=== PATIENT | female | born 1955 | race Caucasian/White ===

== ENCOUNTER 2017-07-03 16:25 | Emergency (ER) | payer MEDICAID ==
--- NOTE | 2017-07-03 18:09 | UC ---
Respiratory Complaint HPI - HPI Summary HPI Summary: 1-2 WEEKS OF PERSISTENT COUGH, CONGESTION. CAN NOT SLEEP DUE TO COUGH. INTERMITTENT FEVER TMAX 101. SAW PCP 1 WEEK AGO AND DX WITH VIRAL URI. SX ARE PERSISTENT AND NOT IMPROVING SO CAME FOR RE-EVALUATION. ALSO IS C/O RIGHT SHOULDER PAIN FOR 2.5 YEARS. INJURED AT WORK INITIALLY. PAIN IS BECOMING INTOLERABLE. 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 Onset/Duration: Gradual Onset, Lasting Weeks, Still Present Timing: Constant Severity Initially: Moderate Severity Currently: Moderate Pain Intensity: 10 - RIGHT SHOULDER PAIN Pain Scale Used: 0-10 Numeric Character: Cough: Productive Aggravating Factors: Nothing Alleviating Factors: Nothing Associated Signs And Symptoms: Positive: Fever, Wheezing, URI - Allergies/Home Medications Allergies/Adverse Reactions: Allergies Allergy/AdvReac Type Severity Reaction Status Date / Time Bee Venom Allergy Anaphylatic Verified 07/03/17 17:06 Shock Ketorolac Tromethamine Allergy See Comment Verified 07/03/17 17:06 [From Toradol] Morphine AdvReac Severe See Comment Verified 07/03/17 17:07 Home Medications: Home Medications Ibuprofen TAB* [Advil TAB*] 800 mg PO PRN 07/03/17 [History] PMH/Surg Hx/FS Hx/Imm Hx Neurological History: Migraine - Surgical History Surgical History: Yes Surgery Procedure, Year, and Place: HYSTERECTOMY, X3, LAPAROSCOPY, COLONOSCOPY - Family History Known Family History: Positive: Cardiac Disease, Hypertension, Diabetes, Renal Disease - Social History Alcohol Use: None Substance Use Type: None Smoking Status (MU): Current Every Day Smoker Type: Cigarettes Amount Used/How Often: <1 PPD Review of Systems Constitutional: Fever ENT: Nasal Discharge Respiratory: Shortness Of Breath, Cough Cardiovascular: Negative Gastrointestinal: Negative Musculoskeletal: Arthralgia, Decreased ROM All Other Systems Reviewed And Are Negative: Yes Physical Exam Triage Information Reviewed: Yes Appearance: No Pain Distress, Well-Nourished, Ill-Appearing - MOD Vital Signs: Initial Vital Signs Temp 100.2 F 07/03/17 17:01 Pulse 82 07/03/17 17:01 Resp 16 07/03/17 17:01 BP 146/81 07/03/17 17:01 Pulse Ox 94 07/03/17 17:01 Eyes: Positive: Conjunctiva Clear ENT: Positive: Hearing grossly normal, Pharynx normal, TMs normal Neck: Positive: Supple, Nontender, No Lymphadenopathy Respiratory: Positive: No respiratory distress, No accessory muscle use, Decreased breath sounds, Wheezing - LEFT BASE - MILD INTERMITTENT, Other: - COUGHING CONTINUOUSLY DURING ENCOUNTER Cardiovascular Exam: Normal Abdomen Description: Positive: Soft Musculoskeletal: Positive: No Edema Neurological: Positive: Alert Psychological: Positive: Age Appropriate Behavior Skin: Negative: rashes UC Diagnostic Evaluation - Laboratory O2 Sat by Pulse Oximetry: 94 Diagnostic Studies Comment: CXR SHOWS MILD COPD BUT NOTHING ACUTE. RIGHT SHOULDER XRAY SHOWS MILD OSTEOARTHRITIS. Respiratory Course/Dx - Course Course Of Treatment: DISCUSSED ANTIBIOTIC OPTIONS. PT WOULD LIKE LEVAQUIN. HAS HAD IT IN THE PAST WITH GOOD EFFECT. DISCUSSED BLACK BOX WARNING - TENDONITIS/ TENDON RUPTURE. PT UNDERSTANDS AND IS WILLING TO ASSUME THAT RISK. DAUGHTER PRESENT DURING THIS CONVERSATION. - Differential Dx/Diagnosis Provider Diagnoses: 1. ACUTE BRONCHITIS. 2. RIGHT SHOULDER PAIN Discharge - Discharge Plan Condition: Stable Disposition: HOME Prescriptions: Albuterol HFA INHALER* [Ventolin HFA Inhaler*] 2 puff INH Q4H PRN #1 mdi PRN Reason: Shortness Of Breath Levofloxacin [Levaquin] 500 mg PO DAILY #10 tab guaiFENesin/CODIEN 100MG-10MG* [Robitussin AC 100Mg-10Mg*] 5 - 10 ml PO Q6H PRN #150 ml MDD 40ml PRN Reason: Cough Patient Education Materials: Acute Bronchitis (ED), Shoulder Pain (ED) Referrals: Moises Okeefe MD [Medical Doctor] - 1 Week Paula Aguilar MD [Primary Care Provider] - If Needed Additional Instructions: CALL THE NUMBER BELOW FOR ASSISTANCE IN ESTABLISHING WITH A PCP An additional resource available to assist in finding the appropriate physician for your health care needs is the [facility] ([facility]). You may contact them by calling [phone]. GO TO THE ER WITHOUT FAIL IF YOUR RESPIRATORY SYMPTOMS WORSEN. CALL [facility]TH[facility] FOR AN APPOINTMENT TO DISCUSS YOUR LONGSTANDING SHOULDER PAIN.
--- NOTE | 2017-07-03 18:48 | RAD ---
INDICATION: Cough and fever. COMPARISON: Comparison is made with a prior study from February 20, 2015. TECHNIQUE: Dual-energy PA and lateral views of the chest were obtained. FINDINGS: The heart is within normal limits in size. Mediastinal and hilar contours appear within normal limits. The lungs are hyperinflated and clear. No pleural effusion is seen. IMPRESSION: FINDINGS SUGGESTIVE OF COPD, NO EVIDENCE FOR ACUTE FINDING.
--- NOTE | 2017-07-03 18:52 | RAD ---
INDICATION: Right shoulder injury. TECHNIQUE: 4 views of the right shoulder were obtained. FINDINGS: The bones are in normal alignment. No fracture is seen. There is mild osteoarthritic change in the acromioclavicular joint. IMPRESSION: MILD OSTEOARTHRITIC CHANGE.
[2017-07-03 19:27] VITALS: BP 148/87
== END 2017-07-03 19:39 | disposition home or self-care (01) ==
LOC: UCEAST 16:25
DX: J20.9 Acute bronchitis, unspecified (principal); J44.9 Chronic obstructive pulmonary disease, unspecified; M19.011 Primary osteoarthritis, right shoulder
CPT/HCPCS: 71020; 99212; G0463

== ENCOUNTER 2017-10-21 10:56 | Inpatient (IN) | payer OTHER ==
[2017-10-21 11:47] LABS: ABS Basophils 0 10^3/ul (0-0.2); ABS Eosinophils 0 10^3/ul (0-0.6); ABS Lymphocytes 1.4 10^3/ul (1.0-4.8); ABS Neutrophils 3.4 10^3/ul (1.5-7.7); ABS Nucleated RBC 0 10^3/ul; Eosinophil % 0.2 % (0-6); Hematocrit 43 % (35-47); Hemoglobin 14.8 g/dl (12.0-16.0); Lymphocyte % 24.5 % (25-47); Mean Corpuscular HGB Conc 34 g/dl (31-36); Mean Corpuscular Hemoglobin 31 pg (27-31); Mean Corpuscular Volume 90 fL (80-97); Mean Platelet Volume 8 um3 (7.4-10.4); Nucleated Red Blood Cells % 0; Platelet Count 215 10^3/ul (150-450); Red Blood Count 4.81 10^6/ul (4.0-5.4); Red Cell Distribution Width 14 % (10.5-15); White Blood Count 5.9 10^3/ul (3.5-10.8)
[2017-10-21 11:52] LABS: INR 1.01 (0.77-1.02)
[2017-10-21] MEDS ORDERED: methylPREDNISolone 125 MG* 2 ML VIAL IV ONE (11:54)
[2017-10-21] MEDS ORDERED: NS 0.9% 1000 ML* 1,000 ML IV ONE ×2 (11:54→14:49)
[2017-10-21] MEDS ORDERED: Albuterol/Ipratropium NEB.SOL* Albuterol 2.5 MG/Ipratropium 0.5 MG 3 ML INH ONE (11:54)
[2017-10-21 12:01] LABS: EGFR Non-African American 61.5 (>60)
[2017-10-21] MEDS ORDERED: HYDROmorphone INJ* 1 MG/ML CARPUJECT SYRINGE IV ONE (13:44)
[2017-10-21] MEDS ORDERED: Oseltamivir CAP* 75 MG CAP PO ONE (13:52)
--- NOTE | 2017-10-21 14:13 | RAD ---
Indication: Shortness of breath. Single frontal view of the chest performed at 1215 hours was reviewed. Comparison is made with previous exam dated July 03, 2017. No mediastinal shift is noted. Heart is of normal size and configuration. Lung nolan appear clear. IMPRESSION: NO ACTIVE CARDIOPULMONARY DISEASE IS NOTED.
[2017-10-21] MEDS ORDERED: Albuterol/Ipratropium NEB.SOL* Albuterol 2.5 MG/Ipratropium 0.5 MG 3 ML INH PRN (14:49)
[2017-10-21] MEDS ORDERED: Acetaminophen TAB* 325 MG PO PRN (14:49)
[2017-10-21] MEDS ORDERED: Ibuprofen TAB* 800 MG PO PRN (14:50)
[2017-10-21] MEDS ORDERED: Albuterol HFA INHALER* 8 gm MDI INH PRN (14:50)
[2017-10-21] MEDS ORDERED: HYDROmorphone INJ* 2 MG/ML CARPUJECT SYRINGE IV SLOW PU PRN (14:51)
[2017-10-21] MEDS ORDERED: methylPREDNISolone 125 MG* 2 ML VIAL ONE (16:11)
[2017-10-21] MEDS: Azithromycin IV(*) 500 MG in NS 0.9% 250 ML* 250 ML IVPB SCH (16:14)
[2017-10-21] MEDS: HYDROmorphone INJ* 2 MG/ML CARPUJECT SYRINGE IV SLOW PU PRN (16:14)
[2017-10-21] MEDS: Enoxaparin(*) 40 MG/0.4 ML SYR SUBCUT SCH (16:15)
--- NOTE | 2017-10-21 18:04 | ED ---
Moon Aguilar Abhishek, scribed for Amanuel Asencio MD on 10/21/17 at 1357 . Shortness of Breath - HPI Summary HPI Summary: This patient is a 62 year old F presenting to [facility] with a chief complaint of SOB since 3 ago. The patient rates the pain 10/10 in severity. Symptoms alleviated by nothing. Patient reports coughing, right side flank abd pain ( since 4 days ago), diffuse chest pain (since yesterday) aggravated by coughing, and warm urine. Pt states the abd pain is aggravated by urination. Medications reviewed and pt states she takes Ativan (anxiety), and pain medications. Pt took ibuprofen and her prescribed medications. Coughing is nonproductive. - History of Current Complaint Chief Complaint: EDShortnessOfBreath Time Seen by Provider: 10/21/17 11:04 Hx Obtained From: Patient Onset/Duration: Gradual Onset, Lasting Days - since 3 days ago; 10/18/17, Still Present Timing: Constant Current Severity: Severe Associated Signs & Symptoms: Cough (Nonproductive), Chest Pain w/Cough - Allergy/Home Medications Allergies/Adverse Reactions: Allergies Allergy/AdvReac Type Severity Reaction Status Date / Time Bee Venom Allergy Anaphylatic Verified 10/21/17 10:58 Shock Ketorolac Tromethamine Allergy See Comment Verified 10/21/17 10:58 [From Toradol] Morphine AdvReac Severe See Comment Verified 10/21/17 10:58 Home Medications: Home Medications LORazepam TAB(*) [Ativan 0.5 MG TAB (*)] 0.5 mg PO Q8HR 10/21/17 [History Confirmed 10/21/17] PMH/Surg Hx/FS Hx/Imm Hx Endocrine/Hematology History: Denies: Hx Diabetes Cardiovascular History: Denies: Hx Congestive Heart Failure Respiratory History: Reports: Hx Chronic Obstructive Pulmonary Disease (COPD) Neurological History: Reports: Hx Migraine, Other Neuro Impairments/Disorders - vertigo - Surgical History Surgery Procedure, Year, and Place: HYSTERECTOMY, X3, LAPAROSCOPY, COLONOSCOPY Infectious Disease History: No Infectious Disease History: Denies: Traveled Outside the [place] in Last 30 Days - Family History Known Family History: Positive: Cardiac Disease, Hypertension, Diabetes, Renal Disease - Social History Alcohol Use: None Substance Use Type: Reports: None Hx Tobacco Use: Yes Smoking Status (MU): Heavy Every Day Tobacco Smoker Type: Cigarettes Amount Used/How Often: <1 PPD Review of Systems Constitutional: Negative Eyes: Negative ENT: Negative Positive: Chest Pain - diffuse and aggravated by a cough Positive: Shortness Of Breath - nonproductive, Cough Positive: Abdominal Pain - right sided flank pain Genitourinary: Other - "warm urine" Musculoskeletal: Negative Skin: Negative Neurological: Negative Psychological: Normal All Other Systems Reviewed And Are Negative: Yes Physical Exam - Summary Physical Exam Summary: Appearance: The patient is well-nourished in no acute distress and in no acute pain. Skin: The skin is warm and dry and skin color reflects adequate perfusion. HEENT: ~The head is normocephalic and atraumatic. The pupils are equal and reactive. The conjunctivae are clear and without drainage. ~Nares are patent and without drainage. ~Mouth reveals moist mucous membranes and the throat is without erythema and exudate. ~The external ears are intact. The ear canals are patent and without drainage. The tympanic membranes are intact. Neck: the neck is supple with full range of motion and non-tender. There are no carotid bruits. ~There is no neck vein distension. Respiratory: Chest is non-tender. Tight width decreased breath sounds Cardiovascular: tachycardia. ~There is no murmur or rub auscultated. ~~There is no peripheral edema and pulses are symmetrical and equal. Abdomen: The abdomen is soft and non-tender. ~There are normal bowel sounds heard in all four quadrants and there is no organomegaly palpated. Musculoskeletal: There is no back tenderness noted. ~Extremities are non-tender with full range of motion. ~There is good capillary refill. ~There is no peripheral edema or calf tenderness elicited. Neurological: Patient is alert and oriented to person, place and time. ~The patient has symmetrical motor strength in all four extremities. ~Cranial nerves are grossly intact. Deep tendon reflexes are symmetrical and equal in all four extremities. Psychiatric: The patient has an appropriate affect and does not exhibit any anxiety or depression. Triage Information Reviewed: Yes Vital Signs On Initial Exam: Initial Vitals Temp Pulse Resp BP Pulse Ox 98.6 F 108 28 126/73 93 10/21/17 10:58 10/21/17 10:58 10/21/17 10:58 10/21/17 10:58 10/21/17 10:58 Vital Signs Reviewed: Yes - [place] Coma Scale Coma Scale Total: 15 Diagnostics - Vital Signs Vital Signs Temp Pulse Resp BP Pulse Ox 10/21/17 13:50 22 10/21/17 13:39 87 129/75 94 10/21/17 13:00 85 121/62 94 10/21/17 12:30 81 32 114/55 94 10/21/17 12:21 91 14 98 10/21/17 12:00 66 24 108/59 93 10/21/17 11:33 94 10/21/17 11:30 104 17 112/67 95 10/21/17 11:15 22 10/21/17 11:13 99 24 93 10/21/17 11:10 142/77 10/21/17 10:58 98.6 F 108 28 126/73 93 - Laboratory Lab Results: Lab Results 10/21/17 10/21/17 10/21/17 Range/Units 11:40 11:40 11:40 WBC 5.9 (3.5-10.8) 10^3/ul RBC 4.81 (4.0-5.4) 10^6/ul Hgb 14.8 (12.0-16.0) g/dl Hct 43 (35-47) % MCV 90 (80-97) fL MCH 31 (27-31) pg MCHC 34 (31-36) g/dl RDW 14 (10.5-15) % Plt Count 215 (150-450) 10^3/ul MPV 8 (7.4-10.4) um3 Neut % (Auto) 58.3 (38-83) % Lymph % (Auto) 24.5 L (25-47) % [place] % (Auto) 16.3 H (1-9) % Eos % (Auto) 0.2 (0-6) % Baso % (Auto) 0.7 (0-2) % Absolute Neuts (auto) 3.4 (1.5-7.7) 10^3/ul Absolute Lymphs (auto) 1.4 (1.0-4.8) 10^3/ul Absolute Monos (auto) 1.0 H (0-0.8) 10^3/ul Absolute Eos (auto) 0 (0-0.6) 10^3/ul Absolute Basos (auto) 0 (0-0.2) 10^3/ul Absolute Nucleated RBC 0 10^3/ul Nucleated RBC % 0 INR (Anticoag Therapy) (0.77-1.02) Sodium 132 L (133-145) mmol/L Potassium 4.5 (3.5-5.0) mmol/L Chloride 97 L (101-111) mmol/L Carbon Dioxide 26 (22-32) mmol/L Anion Gap 9 (2-11) mmol/L BUN 16 (6-24) mg/dL Creatinine 0.92 (0.51-0.95) mg/dL Est GFR ( Amer) 79.0 (>60) Est GFR (Non-Af Amer) 61.5 (>60) BUN/Creatinine Ratio 17.4 (8-20) Glucose 89 (70-100) mg/dL Lactic Acid (0.5-2.0) mmol/L Calcium 9.8 (8.6-10.3) mg/dL Total Bilirubin 0.50 (0.2-1.0) mg/dL AST 19 (13-39) U/L ALT 13 (7-52) U/L Alkaline Phosphatase 48 (34-104) U/L Troponin I 0.00 (<0.04) ng/mL C-Reactive Protein 18.37 H (< 5.00) mg/L B-Natriuretic Peptide 25 ( - 100) pg/mL Total Protein 7.0 (6.4-8.9) g/dL Albumin 4.3 (3.2-5.2) g/dL Globulin 2.7 (2-4) g/dL Albumin/Globulin Ratio 1.6 (1-3) Influenza A (Rapid) (Negative) Influenza B (Rapid) (Negative) 10/21/17 10/21/17 10/21/17 Range/Units 11:40 11:40 11:40 WBC (3.5-10.8) 10^3/ul RBC (4.0-5.4) 10^6/ul Hgb (12.0-16.0) g/dl Hct (35-47) % MCV (80-97) fL MCH (27-31) pg MCHC (31-36) g/dl RDW (10.5-15) % Plt Count (150-450) 10^3/ul MPV (7.4-10.4) um3 Neut % (Auto) (38-83) % Lymph % (Auto) (25-47) % [place] % (Auto) (1-9) % Eos % (Auto) (0-6) % Baso % (Auto) (0-2) % Absolute Neuts (auto) (1.5-7.7) 10^3/ul Absolute Lymphs (auto) (1.0-4.8) 10^3/ul Absolute Monos (auto) (0-0.8) 10^3/ul Absolute Eos (auto) (0-0.6) 10^3/ul Absolute Basos (auto) (0-0.2) 10^3/ul Absolute Nucleated RBC 10^3/ul Nucleated RBC % INR (Anticoag Therapy) 1.01 (0.77-1.02) Sodium (133-145) mmol/L Potassium (3.5-5.0) mmol/L Chloride (101-111) mmol/L Carbon Dioxide (22-32) mmol/L Anion Gap (2-11) mmol/L BUN (6-24) mg/dL Creatinine (0.51-0.95) mg/dL Est GFR ( Amer) (>60) Est GFR (Non-Af Amer) (>60) BUN/Creatinine Ratio (8-20) Glucose (70-100) mg/dL Lactic Acid 1.1 (0.5-2.0) mmol/L Calcium (8.6-10.3) mg/dL Total Bilirubin (0.2-1.0) mg/dL AST (13-39) U/L ALT (7-52) U/L Alkaline Phosphatase (34-104) U/L Troponin I (<0.04) ng/mL C-Reactive Protein (< 5.00) mg/L B-Natriuretic Peptide ( - 100) pg/mL Total Protein (6.4-8.9) g/dL Albumin (3.2-5.2) g/dL Globulin (2-4) g/dL Albumin/Globulin Ratio (1-3) Influenza A (Rapid) Positive H (Negative) Influenza B (Rapid) Negative (Negative) Result Diagrams: 10/21/17 11:40 10/21/17 11:40 Lab Statement: Any lab studies that have been ordered have been reviewed, and results considered in the medical decision making process. - Radiology Chest X-ray Radiology Interpretation Completed By: Radiologist - CXR reveals, per radiologist, NO ACTIVE CARDIOPULMONARY DISEASE IS NOTED. ED physician has reviewed this radiology report and agrees. - EKG 1 Cardiac Rate: Tachycardia EKG Rhythm: Sinus Tachycardia EKG Interpretation: left axis deviation at 100 bpm Course/Dx - Course Course Of Treatment: Ms. Solares presented with a couple days of cough and congestion. She is a smoker and unaware of any respiratory problems. She was quite tight and wheezy with a positive influenza. I think she needs to be hospitalized because of her breathing. She has also had some right flank pain for several days. - Diagnoses Provider Diagnoses: Influenza A, Bronchospasm - Physician Notifications Discussed Care of Patient With: Dr. Jimenez - Critical Care Time Critical Care Time: 30-74 min Discharge - Discharge Plan Condition: Stable Disposition: ADMITTED TO [facility] The documentation as recorded by the Moon kurtz Abhishek accurately reflects the service I personally performed and the decisions made by me, Amanuel Asencio MD.
[2017-10-21] MEDS: cefTRIAXone(*) 1 GM in NS 0.9% 50 ML* 50 ML IVPB SCH (18:48)
[2017-10-21] MEDS ORDERED: oxyCODONE/Acetamin 5/325 MG* TAB PO PRN (19:58)
[2017-10-21] MEDS: methylPREDNISolone 125 MG* 2 ML VIAL IV SCH (20:33)
[2017-10-21] MEDS: Oseltamivir CAP* 75 MG CAP PO SCH (20:33)
[2017-10-21] MEDS: oxyCODONE/Acetamin 5/325 MG* TAB PO PRN (20:33)
[2017-10-21] MEDS: LORazepam TAB(*) 0.5 MG PO SCH (20:33)
--- NOTE | 2017-10-21 21:23 | HP ---
CC: Dr. Aguilar * HISTORY AND PHYSICAL: DATE OF ADMISSION: 10/21/17 TIME OF EVALUATION: 1:00 p.m. PRIMARY CARE PROVIDER: Paula Aguilar MD. CHIEF COMPLAINT: Shortness of breath/body aches/fever. HISTORY OF PRESENT ILLNESS: Ms. Solares is a pleasant 62-year-old woman who complains of shortness of breath for the past 3-4 days. The patient states that she has a burning in her chest that is worse with breathing. She states this is 10/10 in severity. The patient is coughing. She has right flank pain and diffuse chest pain and described this as a burning and she states she has some pain with urination (warm urine). The patient has got abdominal pain. The patient takes only few medications including Ativan for anxiety. She has been taking ibuprofen. Her cough is nonproductive. 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 She thinks she might have the flu. The patient had a chest x-ray in the emergency room and this showed no active cardiopulmonary disease. At the same time, the patient has a normal white blood cell count. However, the patient's labs were positive for influenza A. The patient's chest pain and overall difficulty breathing has the patient concerned and the emergency room has treated the patient as a COPD exacerbation given her smoking history and physical exam, which will be described below. She has received IV steroids. She has received IV antibiotics to account for a bacterial component potentially. The patient states she has not been taking adequate food or liquid. The patient feels dehydrated and she has got a low sodium value. Her CRP is elevated consistent with an acute infection. Again, she is referred for admission/observation by the hospitalist service. PAST MEDICAL HISTORY: 1. Anxiety. 2. Reactive airway disease/asthma-uses Ventolin inhaler. 3. Ongoing tobacco abuse. OUTPATIENT MEDICATIONS: 1. Ativan 0.5 mg by mouth every 8 hours, standing. 2. Advil 800 mg twice daily p.r.n. pain/fever. 3. Ventolin inhaler 2 puffs inhaled every four hours as needed for shortness of breath. ALLERGIES: BEES, KETOROLAC, MORPHINE. FAMILY HISTORY: Reviewed but noncontributory based on this current presentation. 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 The patient is an ongoing smoker. She denies alcohol use. Her surrogate decision maker is her daughter, Mily Bailey, who could be reached at [phone]. The patient wishes to be a full code. REVIEW OF SYSTEMS: A review of 14 systems was accomplished at bedside and is largely negative expect for the pertinent positives I mentioned already in the HPI and past medical history. PHYSICAL EXAMINATION GENERAL APPEARANCE: Acutely ill woman, holding her chest while breathing. Appears stated age. She is sitting up in the emergency room. VITAL SIGNS: On admission temperature 98.6 degrees Fahrenheit though the patient reported an elevated temperature at home, pulse rate initially 99 to 103 down to mid 80s, back to 103 with heart rate varying based on pain primarily. Respirations are as high as 22, oxygen saturation 93% on 2 L. Blood pressure 114/100 up to systolic 130 with diastolic decreased to 60s. HEENT: Oropharynx is clear with mucous membranes moist. No oral exudate noticed. No posterior pharyngeal erythema noted. NECK: No anterior cervical lymphadenopathy appreciated. No carotid bruits. LUNGS: Breath sounds are diminished bilaterally. No focal rales, rhonchi or wheezing. She is diffusely tender along her shoulders and clavicles and her posterior back consistent with influenza and general inflammation. Her anterior chest wall is similarly tender. ABDOMEN: Her abdomen is soft and nontender. Bowel sounds are present. EXTREMITIES: She has got 2+ pulses in the tibialis anterior and dorsalis pedis locations as well as her brachial artery and radial arteries. She moves all her extremities equally. MUSCULOSKELETAL: Her musculoskeletal exam is unremarkable. There is trace to no swelling bilaterally that I can appreciate. NEUROLOGIC: Entirely nonfocal with no sensory, motor, reflex, or proprioception component deficiencies. PSYCH: Normal affect. No acute anxiety or depression. Her mental status is intact. SKIN: Her skin is dry and well perfused throughout. ADMISSION DATA: Her white blood cell count is normal at 5.6 with a monocytosis at 16, 3%. Her other differential is unremarkable. Hemoglobin 14.8 , platelets 215, INR normal at 1.01. Blood chemistry is significant for marginally low sodium at 132 and a low chloride at 97 but otherwise unremarkable with a preserved BUN to creatinine ratio. Her CRP is not surprisingly elevated at 18.37. BNP 25, protein level is preserved and her serology is significant for positive influenza A rapid test from the emergency room. Her chest x-ray done at 1128 hours on 10/21/17 showed no pulmonary parenchymal disease (though this does not rule out bronchial inflammation and infection) EKG is normal sinus rhythm, no evidence of active ischemia. IMPRESSION: Ms. Solares is a 62-year-old woman, active smoker, certainly with a likely undiagnosed chronic obstructive pulmonary disease component with a chronic obstructive pulmonary disease flare and poor air movement and shortness of breath with cough secondary to influenza positivity with significant systemic symptoms and pain that is requiring opiates for full control. PLAN BY MEDICAL PROBLEM: 1. Influenza with COPD exacerbation as a result. - We will continue steroids that were started in the emergency room for poor air movement with 60 mg IV Solu-Medrol q. 8 hours, this should be titrated down by subsequent providers. - We will initiate azithromycin, but also add ceftriaxone for possible bacterial component of presentation in addition to Tamiflu for influenza treatment. - IV fluids with an addition of 1 L of normal saline in addition to what was given by the emergency room to fully rehydrate. - Of note, the patient has substantial pain and is reticent to taking morphine because of prior adverse reactions, so she she will have Dilaudid 0.5 or 1 mg q. 4 hours p.r.n. pain in addition to Motrin 800 mg by mouth every 8 hours in addition to oral Tylenol. - I will continue dual nebulizer therapy as was started by the emergency room. 2. We will continue Ativan for anxiety. 3. We will provide a regular diet. No indication for inability to tolerate oral food and liquids. 4. Reassess tomorrow for possible improvement. My inclination is that the patient will not be ready for discharge tomorrow given the severity of her symptoms at the point of admission. Recheck CBC and comprehensive metabolic panel on the morning of October 22 5. Full code. 6. Surrogate decision maker is as stated in the social history. TIME SPENT: Total time taken to admit Ms. Solares was 75 minutes, greater than half the time was spent going over the admission history and physical at the bedside with the patient. [id number]/[facility] #: [id number] MTDD
[2017-10-21] MEDS ORDERED: LORazepam TAB(*) 0.5 MG PO ONE (22:12)
[2017-10-21] MEDS ORDERED: Mouth Piece, Nicotine* 1 EACH CARTRIDGE INH ONE (23:00)
[2017-10-21] MEDS ORDERED: Nicotine Inhaler* 10 MG AMP Q2H PRN CRAVING INH (23:00)
[2017-10-22] MEDS: oxyCODONE/Acetamin 5/325 MG* TAB PO PRN ×4 (01:16→21:42)
[2017-10-22] MEDS: methylPREDNISolone 125 MG* 2 ML VIAL IV SCH ×3 (04:28→21:41)
[2017-10-22] MEDS: LORazepam TAB(*) 0.5 MG PO SCH ×3 (04:29→21:42)
[2017-10-22] MEDS ORDERED: Saline NASAL SPRAY 0.65%* BTL BOTH NARES PRN (04:57)
[2017-10-22 06:52] LABS: ABS Basophils 0 10^3/ul (0-0.2); ABS Eosinophils 0 10^3/ul (0-0.6); ABS Lymphocytes 0.8 10^3/ul (1.0-4.8); ABS Monocytes 0.2 10^3/ul (0-0.8); ABS Neutrophils 2.1 10^3/ul (1.5-7.7); ABS Nucleated RBC 0 10^3/ul; Eosinophil % 0.1 % (0-6); Hematocrit 38 % (35-47); Hemoglobin 12.9 g/dl (12.0-16.0); Mean Corpuscular HGB Conc 34 g/dl (31-36); Mean Corpuscular Hemoglobin 31 pg (27-31); Mean Corpuscular Volume 91 fL (80-97); Mean Platelet Volume 8 um3 (7.4-10.4); Nucleated Red Blood Cells % 0.2; Platelet Count 186 10^3/ul (150-450); Red Blood Count 4.19 10^6/ul (4.0-5.4); Red Cell Distribution Width 14 % (10.5-15); White Blood Count 3.1 10^3/ul (3.5-10.8)
[2017-10-22 07:04] LABS: EGFR Non-African American 93.4 (>60)
[2017-10-22] MEDS ORDERED: Influenza VAC *QUAD* 2017-18* 0.5 ML SYRINGE IM ONE (09:00)
[2017-10-22] MEDS: Oseltamivir CAP* 75 MG CAP PO SCH ×2 (09:17→21:41)
[2017-10-22] MEDS: Ondansetron INJ* 2 MG/ML VIAL IV PRN ×2 (13:18→21:47)
[2017-10-22] MEDS: Azithromycin IV(*) 500 MG in NS 0.9% 250 ML* 250 ML IVPB SCH (15:34)
[2017-10-22] MEDS: Enoxaparin(*) 40 MG/0.4 ML SYR SUBCUT SCH (15:34)
[2017-10-22] MEDS: cefTRIAXone(*) 1 GM in NS 0.9% 50 ML* 50 ML IVPB SCH (16:43)
--- NOTE | 2017-10-22 18:04 | PN ---
Subjective Date of Service: 10/22/17 Interval History: C/o RLQ abd pain, and Right CVAT, warmness with urination for 3 days. Denies N/ V/D. Denies shortness of breath or chest pain. states that her breathing is better. Family History: Unchanged from Admission Social History: Unchanged from Admission Past Medical History: Unchanged from Admission Objective Active Medications: Acetaminophen (Tylenol Tab*) 650 mg PO Q4H PRN PRN Reason: FEVER/PAIN Albuterol (Ventolin Hfa Inhaler*) 2 puff INH Q4H PRN PRN Reason: SHORTNESS OF BREATH Albuterol/Ipratropium (Duoneb (Albuterol 2.5 Mg/Ipratropium 0.5 Mg)) 1 neb INH [id number] AWAKE PRN PRN Reason: sob/wheexing Enoxaparin Sodium (Lovenox(*)) 40 mg SUBCUT Q24H [facility] Last Admin: 10/22/17 15:34 Dose: 40 mg Hydromorphone HCl (Dilaudid Inj*) 0.5 mg IV SLOW PU Q4H PRN PRN Reason: moderate pain Hydromorphone HCl (Dilaudid Inj*) 1 mg IV SLOW PU Q4H PRN PRN Reason: severe pain Last Admin: 10/21/17 16:14 Dose: 1 mg Ceftriaxone Sodium 1 gm/ (Sodium Chloride) 50 mls @ 200 mls/hr IVPB Q24H [facility] Last Admin: 10/22/17 16:43 Dose: 200 mls/hr Azithromycin 500 mg/ Sodium (Chloride) 250 mls @ 250 mls/hr IVPB Q24H [facility] Last Admin: 10/22/17 15:34 Dose: 250 mls/hr Ibuprofen (Motrin Tab*) 800 mg PO BID PRN PRN Reason: PAIN Last Admin: 10/22/17 13:18 Dose: 800 mg Lorazepam (Ativan Tab(*)) 0.5 mg PO Q8HR [facility] Last Admin: 10/22/17 13:13 Dose: 0.5 mg Methylprednisolone Sodium Succinate (Solu-Medrol 125mg *) 60 mg IV Q8H [facility] Last Admin: 10/22/17 12:04 Dose: 60 mg Nicotine (Nicotine Inhaler*) 10 mg INH Q2H PRN PRN Reason: CRAVING Last Admin: 10/22/17 13:12 Dose: 10 mg Ondansetron HCl (Zofran Inj*) 4 mg IV Q4H PRN PRN Reason: NAUSEA/VOMITING Last Admin: 10/22/17 13:18 Dose: 4 mg Oseltamivir Phosphate (Tamiflu Cap*) 75 mg PO BID GASPER Stop: 10/26/17 09:01 Last Admin: 10/22/17 09:17 Dose: 75 mg Oxycodone/Acetaminophen (Percocet 5/325 Tab*) 1 tab PO Q4H PRN PRN Reason: PAIN - MILD TO MODERATE Oxycodone/Acetaminophen (Percocet 5/325 Tab*) 2 tab PO Q4H PRN PRN Reason: PAIN - MODERATE TO SEVERE Last Admin: 10/22/17 13:59 Dose: 2 tab Sodium Chloride (Sodium Chloride 0.65% Nasal Orange*) 2 spray BOTH NARES Q2H PRN PRN Reason: DRYNESS Last Admin: 10/22/17 09:17 Dose: 2 spray Vital Signs - 8 hr 10/22/17 10/22/17 10/22/17 13:05 13:10 13:13 Temperature 97.7 F Pulse Rate 85 Respiratory 16 18 Rate Blood Pressure 118/63 (mmHg) O2 Sat by Pulse 88 94 Oximetry 10/22/17 10/22/17 10/22/17 13:59 15:53 16:49 Temperature 97.6 F Pulse Rate 90 Respiratory 16 18 18 Rate Blood Pressure 119/61 (mmHg) O2 Sat by Pulse 91 Oximetry Oxygen Devices in Use Now: None Appearance: appears comfortable sittingin the bed. no respiratory distress Eyes: No Scleral Icterus Ears/Nose/Mouth/Throat: Clear Oropharnyx, Mucous Membranes Moist Neck: NL Appearance and Movements; NL JVP, Trachea Midline Respiratory: Symmetrical Chest Expansion and Respiratory Effort, Clear to Auscultation Cardiovascular: NL Sounds; No Murmurs; No JVD, RRR, No Edema Abdominal: NL Sounds; No Tenderness; No Distention Extremities: No Edema, No Clubbing, Cyanosis Skin: No Rash or Ulcers Neurological: Alert and Oriented x 3, NL Gait, NL Muscle Strength and Tone Nutrition: Taking PO's Result Diagrams: 10/22/17 06:36 10/22/17 06:36 Additional Lab and Data: Lab Results 01/10/21/17 10/21/17 Range/Units 11:40 11:40 11:40 WBC 5.9 (3.5-10.8) 10^3/ul RBC 4.81 (4.0-5.4) 10^6/ul Hgb 14.8 (12.0-16.0) g/dl Hct 43 (35-47) % MCV 90 (80-97) fL MCH 31 (27-31) pg MCHC 34 (31-36) g/dl RDW 14 (10.5-15) % Plt Count 215 (150-450) 10^3/ul MPV 8 (7.4-10.4) um3 Neut % (Auto) 58.3 (38-83) % Lymph % (Auto) 24.5 L (25-47) % [place] % (Auto) 16.3 H (1-9) % Eos % (Auto) 0.2 (0-6) % Baso % (Auto) 0.7 (0-2) % Absolute Neuts (auto) 3.4 (1.5-7.7) 10^3/ul Absolute Lymphs (auto) 1.4 (1.0-4.8) 10^3/ul Absolute Monos (auto) 1.0 H (0-0.8) 10^3/ul Absolute Eos (auto) 0 (0-0.6) 10^3/ul Absolute Basos (auto) 0 (0-0.2) 10^3/ul Absolute Nucleated RBC 0 10^3/ul Nucleated RBC % 0 INR (Anticoag Therapy) (0.77-1.02) Sodium 132 L (133-145) mmol/L Potassium 4.5 (3.5-5.0) mmol/L Chloride 97 L (101-111) mmol/L Carbon Dioxide 26 (22-32) mmol/L Anion Gap 9 (2-11) mmol/L BUN 16 (6-24) mg/dL Creatinine 0.92 (0.51-0.95) mg/dL Est GFR ( Amer) 79.0 (>60) Est GFR (Non-Af Amer) 61.5 (>60) BUN/Creatinine Ratio 17.4 (8-20) Glucose 89 (70-100) mg/dL Lactic Acid (0.5-2.0) mmol/L Calcium 9.8 (8.6-10.3) mg/dL Total Bilirubin 0.50 (0.2-1.0) mg/dL AST 19 (13-39) U/L ALT 13 (7-52) U/L Alkaline Phosphatase 48 (34-104) U/L Troponin I 0.00 (<0.04) ng/mL C-Reactive Protein 18.37 H (< 5.00) mg/L B-Natriuretic Peptide 25 ( - 100) pg/mL Total Protein 7.0 (6.4-8.9) g/dL Albumin 4.3 (3.2-5.2) g/dL Globulin 2.7 (2-4) g/dL Albumin/Globulin Ratio 1.6 (1-3) Influenza A (Rapid) (Negative) Influenza B (Rapid) (Negative) 10/21/17 10/21/17 10/21/17 Range/Units 11:40 11:40 11:40 WBC (3.5-10.8) 10^3/ul RBC (4.0-5.4) 10^6/ul Hgb (12.0-16.0) g/dl Hct (35-47) % MCV (80-97) fL MCH (27-31) pg MCHC (31-36) g/dl RDW (10.5-15) % Plt Count (150-450) 10^3/ul MPV (7.4-10.4) um3 Neut % (Auto) (38-83) % Lymph % (Auto) (25-47) % [place] % (Auto) (1-9) % Eos % (Auto) (0-6) % Baso % (Auto) (0-2) % Absolute Neuts (auto) (1.5-7.7) 10^3/ul Absolute Lymphs (auto) (1.0-4.8) 10^3/ul Absolute Monos (auto) (0-0.8) 10^3/ul Absolute Eos (auto) (0-0.6) 10^3/ul Absolute Basos (auto) (0-0.2) 10^3/ul Absolute Nucleated RBC 10^3/ul Nucleated RBC % INR (Anticoag Therapy) 1.01 (0.77-1.02) Sodium (133-145) mmol/L Potassium (3.5-5.0) mmol/L Chloride (101-111) mmol/L Carbon Dioxide (22-32) mmol/L Anion Gap (2-11) mmol/L BUN (6-24) mg/dL Creatinine (0.51-0.95) mg/dL Est GFR ( Amer) (>60) Est GFR (Non-Af Amer) (>60) BUN/Creatinine Ratio (8-20) Glucose (70-100) mg/dL Lactic Acid 1.1 (0.5-2.0) mmol/L Calcium (8.6-10.3) mg/dL Total Bilirubin (0.2-1.0) mg/dL AST (13-39) U/L ALT (7-52) U/L Alkaline Phosphatase (34-104) U/L Troponin I (<0.04) ng/mL C-Reactive Protein (< 5.00) mg/L B-Natriuretic Peptide ( - 100) pg/mL Total Protein (6.4-8.9) g/dL Albumin (3.2-5.2) g/dL Globulin (2-4) g/dL Albumin/Globulin Ratio (1-3) Influenza A (Rapid) Positive H (Negative) Influenza B (Rapid) Negative (Negative) Assess/Plan/Problems-Billing Assessment: - Patient Problems (1) Influenza A Current Visit: Yes Status: Acute Code(s): J10.1 - FLU DUE TO OTH IDENT INFLUENZA VIRUS W OTH RESP MANIFEST SNOMED Code(s): 899777837 Comment: Continue Tamiflu Supportive care (2) COPD (chronic obstructive pulmonary disease) Current Visit: Yes Status: Acute Code(s): J44.9 - CHRONIC OBSTRUCTIVE PULMONARY DISEASE, UNSPECIFIED SNOMED Code(s): 48233895 Comment: Suspect this is a flare d/t influenza Will continue ceftriaxone and azithromycin continue albuterol nebs as needed for shortness of breath continue solumedrol 60 mg Q8 hours will reevaluate in the AM Status and Disposition: inpatient will reevaluate in the AM for possible discharge
[2017-10-22] MEDS: HYDROmorphone INJ* 2 MG/ML CARPUJECT SYRINGE IV SLOW PU PRN (21:42)
[2017-10-23] MEDS: LORazepam TAB(*) 0.5 MG PO SCH (05:25)
[2017-10-23] MEDS: methylPREDNISolone 125 MG* 2 ML VIAL IV SCH ×2 (05:25→12:21)
[2017-10-23] MEDS: Ondansetron INJ* 2 MG/ML VIAL IV PRN ×2 (05:27→10:58)
[2017-10-23] MEDS: oxyCODONE/Acetamin 5/325 MG* TAB PO PRN ×2 (05:28→10:59)
[2017-10-23 09:27] LABS: Urine Appearance Clear; Urine Color Yellow
[2017-10-23 09:28] LABS: Urine Ketones Negative (Negative); Urine Specific Gravity 1.005 (1.010-1.030); Urine Urobilinogen Negative (Negative)
[2017-10-23 09:29] LABS: Urine Blood Negative (Negative); Urine Protein Negative (Negative)
[2017-10-23] MEDS: Oseltamivir CAP* 75 MG CAP PO SCH (10:22)
--- NOTE | 2017-10-23 11:22 | PN ---
Subjective Date of Service: 10/23/17 Interval History: patient states that she feels better, denies shortness of breath. c/o mild chest pain with coughing. Denies V/D. states that she has nausea after eating breakfast. Family History: Unchanged from Admission Social History: Unchanged from Admission Past Medical History: Unchanged from Admission Objective Active Medications: Acetaminophen (Tylenol Tab*) 650 mg PO Q4H PRN PRN Reason: FEVER/PAIN Albuterol (Ventolin Hfa Inhaler*) 2 puff INH Q4H PRN PRN Reason: SHORTNESS OF BREATH Albuterol/Ipratropium (Duoneb (Albuterol 2.5 Mg/Ipratropium 0.5 Mg)) 1 neb INH [id number] AWAKE PRN PRN Reason: sob/wheexing Enoxaparin Sodium (Lovenox(*)) 40 mg SUBCUT Q24H [facility] Last Admin: 10/22/17 15:34 Dose: 40 mg Hydromorphone HCl (Dilaudid Inj*) 0.5 mg IV SLOW PU Q4H PRN PRN Reason: moderate pain Hydromorphone HCl (Dilaudid Inj*) 1 mg IV SLOW PU Q4H PRN PRN Reason: severe pain Last Admin: 10/22/17 21:42 Dose: 1 mg Ceftriaxone Sodium 1 gm/ (Sodium Chloride) 50 mls @ 200 mls/hr IVPB Q24H [facility] Last Admin: 10/22/17 16:43 Dose: 200 mls/hr Azithromycin 500 mg/ Sodium (Chloride) 250 mls @ 250 mls/hr IVPB Q24H [facility] Last Admin: 10/22/17 15:34 Dose: 250 mls/hr Ibuprofen (Motrin Tab*) 800 mg PO BID PRN PRN Reason: PAIN Last Admin: 10/22/17 13:18 Dose: 800 mg Lorazepam (Ativan Tab(*)) 0.5 mg PO Q8HR [facility] Last Admin: 10/23/17 05:25 Dose: 0.5 mg Methylprednisolone Sodium Succinate (Solu-Medrol 125mg *) 60 mg IV Q8H [facility] Last Admin: 10/23/17 05:25 Dose: 60 mg Nicotine (Nicotine Inhaler*) 10 mg INH Q2H PRN PRN Reason: CRAVING Last Admin: 10/22/17 13:12 Dose: 10 mg Ondansetron HCl (Zofran Inj*) 4 mg IV Q4H PRN PRN Reason: NAUSEA/VOMITING Last Admin: 10/23/17 10:58 Dose: 4 mg Oseltamivir Phosphate (Tamiflu Cap*) 75 mg PO BID GASPER Stop: 10/26/17 09:01 Last Admin: 10/23/17 10:22 Dose: 75 mg Oxycodone/Acetaminophen (Percocet 5/325 Tab*) 1 tab PO Q4H PRN PRN Reason: PAIN - MILD TO MODERATE Oxycodone/Acetaminophen (Percocet 5/325 Tab*) 2 tab PO Q4H PRN PRN Reason: PAIN - MODERATE TO SEVERE Last Admin: 10/23/17 10:59 Dose: 2 tab Sodium Chloride (Sodium Chloride 0.65% Nasal [place]*) 2 spray BOTH NARES Q2H PRN PRN Reason: DRYNESS Last Admin: 10/22/17 09:17 Dose: 2 spray Vital Signs - 8 hr 10/23/17 10/23/17 10/23/17 03:56 05:25 05:28 Temperature 97.9 F Pulse Rate 89 Respiratory 20 18 16 Rate Blood Pressure 135/73 (mmHg) O2 Sat by Pulse 89 Oximetry 10/23/17 10/23/17 07:25 10:59 Temperature Pulse Rate Respiratory 18 18 Rate Blood Pressure (mmHg) O2 Sat by Pulse Oximetry Oxygen Devices in Use Now: None Result Diagrams: 10/22/17 06:36 10/22/17 06:36 Additional Lab and Data: Lab Results 10/21/17 10/21/17 10/21/17 Range/Units 11:40 11:40 11:40 WBC 5.9 (3.5-10.8) 10^3/ul RBC 4.81 (4.0-5.4) 10^6/ul Hgb 14.8 (12.0-16.0) g/dl Hct 43 (35-47) % MCV 90 (80-97) fL MCH 31 (27-31) pg MCHC 34 (31-36) g/dl RDW 14 (10.5-15) % Plt Count 215 (150-450) 10^3/ul MPV 8 (7.4-10.4) um3 Neut % (Auto) 58.3 (38-83) % Lymph % (Auto) 24.5 L (25-47) % [place] % (Auto) 16.3 H (1-9) % Eos % (Auto) 0.2 (0-6) % Baso % (Auto) 0.7 (0-2) % Absolute Neuts (auto) 3.4 (1.5-7.7) 10^3/ul Absolute Lymphs (auto) 1.4 (1.0-4.8) 10^3/ul Absolute Monos (auto) 1.0 H (0-0.8) 10^3/ul Absolute Eos (auto) 0 (0-0.6) 10^3/ul Absolute Basos (auto) 0 (0-0.2) 10^3/ul Absolute Nucleated RBC 0 10^3/ul Nucleated RBC % 0 INR (Anticoag Therapy) (0.77-1.02) Sodium 132 L (133-145) mmol/L Potassium 4.5 (3.5-5.0) mmol/L Chloride 97 L (101-111) mmol/L Carbon Dioxide 26 (22-32) mmol/L Anion Gap 9 (2-11) mmol/L BUN 16 (6-24) mg/dL Creatinine 0.92 (0.51-0.95) mg/dL Est GFR ( Amer) 79.0 (>60) Est GFR (Non-Af Amer) 61.5 (>60) BUN/Creatinine Ratio 17.4 (8-20) Glucose 89 (70-100) mg/dL Lactic Acid (0.5-2.0) mmol/L Calcium 9.8 (8.6-10.3) mg/dL Total Bilirubin 0.50 (0.2-1.0) mg/dL AST 19 (13-39) U/L ALT 13 (7-52) U/L Alkaline Phosphatase 48 (34-104) U/L Troponin I 0.00 (<0.04) ng/mL C-Reactive Protein 18.37 H (< 5.00) mg/L B-Natriuretic Peptide 25 ( - 100) pg/mL Total Protein 7.0 (6.4-8.9) g/dL Albumin 4.3 (3.2-5.2) g/dL Globulin 2.7 (2-4) g/dL Albumin/Globulin Ratio 1.6 (1-3) Influenza A (Rapid) (Negative) Influenza B (Rapid) (Negative) 10/21/17 10/21/17 10/21/17 Range/Units 11:40 11:40 11:40 WBC (3.5-10.8) 10^3/ul RBC (4.0-5.4) 10^6/ul Hgb (12.0-16.0) g/dl Hct (35-47) % MCV (80-97) fL MCH (27-31) pg MCHC (31-36) g/dl RDW (10.5-15) % Plt Count (150-450) 10^3/ul MPV (7.4-10.4) um3 Neut % (Auto) (38-83) % Lymph % (Auto) (25-47) % [place] % (Auto) (1-9) % Eos % (Auto) (0-6) % Baso % (Auto) (0-2) % Absolute Neuts (auto) (1.5-7.7) 10^3/ul Absolute Lymphs (auto) (1.0-4.8) 10^3/ul Absolute Monos (auto) (0-0.8) 10^3/ul Absolute Eos (auto) (0-0.6) 10^3/ul Absolute Basos (auto) (0-0.2) 10^3/ul Absolute Nucleated RBC 10^3/ul Nucleated RBC % INR (Anticoag Therapy) 1.01 (0.77-1.02) Sodium (133-145) mmol/L Potassium (3.5-5.0) mmol/L Chloride (101-111) mmol/L Carbon Dioxide (22-32) mmol/L Anion Gap (2-11) mmol/L BUN (6-24) mg/dL Creatinine (0.51-0.95) mg/dL Est GFR ( Amer) (>60) Est GFR (Non-Af Amer) (>60) BUN/Creatinine Ratio (8-20) Glucose (70-100) mg/dL Lactic Acid 1.1 (0.5-2.0) mmol/L Calcium (8.6-10.3) mg/dL Total Bilirubin (0.2-1.0) mg/dL AST (13-39) U/L ALT (7-52) U/L Alkaline Phosphatase (34-104) U/L Troponin I (<0.04) ng/mL C-Reactive Protein (< 5.00) mg/L B-Natriuretic Peptide ( - 100) pg/mL Total Protein (6.4-8.9) g/dL Albumin (3.2-5.2) g/dL Globulin (2-4) g/dL Albumin/Globulin Ratio (1-3) Influenza A (Rapid) Positive H (Negative) Influenza B (Rapid) Negative (Negative) Assess/Plan/Problems-Billing Assessment: This is a 62 y.o female patient that presented to the emergency room with 3-4 day history of shortness of breath tested positive for flu A. She carries a history of COPD and anxiety - Patient Problems (1) Influenza A Status: Acute Code(s): J10.1 - FLU DUE TO OTH IDENT INFLUENZA VIRUS W OTH RESP MANIFEST SNOMED Code(s): 096395922 Comment: Continue Tamiflu Supportive care (2) COPD (chronic obstructive pulmonary disease) Status: Acute Code(s): J44.9 - CHRONIC OBSTRUCTIVE PULMONARY DISEASE, UNSPECIFIED SNOMED Code(s): 85912753 Comment: Suspect this is a flare d/t influenza Will continue azithromycin for 3 more day will continue ceftin 500 mg 2 times daily for 5 days continue albuterol inhaler as needed for shortness of breath continue prednisone 60 mg po daily for 3 days, 40 mg for 3 days ,20 mg for 3 days and 10 mg for 3 days will reevaluate in the AM Status and Disposition: will discharge home
[2017-10-23 14:32] VITALS: BP 117/61
--- NOTE | 2017-10-30 11:40 | DS ---
DATE OF ADMISSION: 10/21/2017. DATE OF DISCHARGE: 10/23/2017. ATTENDING PHYSICIAN WHILE IN THE HOSPITAL: Dr. Michelle Tong * (dictated by Awa Delgado, [place]). PRIMARY CARE PHYSICIAN: Dr. Paula Aguilar. PRIMARY DIAGNOSES: 1. Shortness of breath. 2. Influenza. 3. COPD exacerbation. SECONDARY DIAGNOSES: 1. Anxiety. 2. Ongoing tobacco abuse. STUDIES WHILE IN HOSPITAL: Chest x-ray, 10/21/2017: Radiologist's impression: No active cardiopulmonary disease is noted. LABORATORY DATA: Routine lab work was essentially normal. She did have a sodium of 132 and a C-reactive protein of 18.37. Urinalysis was negative. She did have an influenza A and B swab. Influenza A was positive. DISCHARGE MEDICATIONS: 1. New medication: Azithromycin 250 mg p.o. daily times 2 days. 2. Reglan 10 mg p.o. q.8 hours as needed for nausea. 3. Tamiflu 75 mg p.o. b.i.d. for 3 days. 4. Prednisone taper, 60 mg p.o. daily for 3 days, then 40 mg p.o. daily, then 20 mg p.o. daily for 3 days, then 10 mg p.o. daily for 3 days. 5. Cefuroxime 500 mg p.o. b.i.d. for 5 days. HISTORY OF PRESENT ILLNESS AND HOSPITAL COURSE: Ms. Solares is a 62-year-old woman who comes to the emergency room with complaints of increased shortness of breath for three to four days. She states the pain is burning in her chest, worse with breathing. The patient states that she has had a cough. She also states that she has some right flank pain with some warmth with urination. She states that her cough is nonproductive. While in the emergency room, the patient had a chest x-ray that showed no acute cardiopulmonary disease. Her routine lab work was essentially normal; however, the patient's lab was positive for influenza A and due to her chest pain and overall difficulty breathing, she was admitted to the hospital for COPD exacerbation caused by influenza A. During her hospitalization, she did receive Azithromycin 500 mg IV. She was placed on Solu-Medrol 60 mg IV q.8 hours and she had Ceftriaxone 1 gm daily. She was placed on Tamiflu 75 mg p.o. b.i.d. She was placed on Albuterol nebulizer needed for shortness of breath. On 10/23/2017, Ms. Solares was feeling improved. She said her shortness of breath was at her baseline. At this point she is stable for discharge to home. Ms. Solares is stable for discharge home today. Vital signs are as follows: Temperature 98.9 axillary, heart rate was 90, respirations were 16, O2 saturation was 92 percent, blood pressure was 117/61. DISCHARGE PLAN: Ms. Solares will be discharged home. Activity as tolerated. She should continue Albuterol inhaler as needed for shortness of breath. She should follow-up with her primary care provider, Dr. Paula Aguilar, in four to seven days. She can continue a regular diet. The patient was advised to stop smoking. The patient was instructed to return to the emergency room for any chest pain or increased shortness of breath or any worsening of her symptoms. This is a summarized report of her hospital stay. For further details, please see the entire medical record. TIME SPENT: Time spent on this discharge was approximately 45 minutes, greater than half the time was spent with the patient discussing her discharge plans and instructions. CONDITION ON DISCHARGE: Stable. AWA DELGADO NP [id number]/CPS #: [id number] [email or web address]
== END 2017-10-23 13:55 | disposition home or self-care (01) | DRG 140 ==
LOC: ED 10:56 → MED 13:54
PROVIDERS: ADMIT Internal Medicine; ATTEND Internal Medicine
DX: J44.1 Chronic obstructive pulmonary disease with (acute) exacerbation (principal); F17.210 Nicotine dependence, cigarettes, uncomplicated; J10.1 Influenza due to other identified influenza virus with other respiratory manifestations; F41.9 Anxiety disorder, unspecified; G43.909 Migraine, unspecified, not intractable, without status migrainosus; R40.2412 Glasgow coma scale score 13-15, at arrival to emergency department; Z88.6 Allergy status to analgesic agent; Z88.5 Allergy status to narcotic agent; Z91.030 Bee allergy status; Z90.710 Acquired absence of both cervix and uterus; Z82.49 Family history of ischemic heart disease and other diseases of the circulatory system; Z83.3 Family history of diabetes mellitus; Z84.1 Family history of disorders of kidney and ureter; Z23 Encounter for immunization
CPT/HCPCS: 36415; 71045; 80053; 81003; 83605; 83880; 84484; 85025; 85610; 86140; 87040; 87502; 90686; 93005; 94640; 99284; 99406; A9270-GY; J0456; J0696; J1170; J1650; J2405; J2930

== ENCOUNTER 2018-03-30 09:24 | Emergency (ER) | payer OTHER ==
[2018-03-30 09:43] VITALS: BP 125/72
[2018-03-30] MEDS ORDERED: Albuterol/Ipratropium NEB.SOL* Albuterol 2.5 MG/Ipratropium 0.5 MG 3 ML INH ONE (09:59)
[2018-03-30] MEDS ORDERED: predniSONE TAB* 20 MG PO ONE (10:00)
[2018-03-30] MEDS ORDERED: Acetaminop/Codeine 30 MG TAB* 1 TAB (300 MG/30 MG) PO ONE (10:50)
--- NOTE | 2018-03-30 10:56 | RAD ---
INDICATION: COPD COMPARISON: October 21, 2017 TECHNIQUE: PA and lateral dual-energy views were obtained. FINDINGS: Bones/Soft Tissues: There are no acute bony findings. Cardiomediastinal: The cardiomediastinal silhouette is normal. Lungs: There are no infiltrates. There is hyperinflation. Pleura: There are no pleural effusions. Other: None IMPRESSION: HYPERINFLATION.
--- NOTE | 2018-03-30 11:12 | UC ---
Respiratory Complaint HPI - HPI Summary HPI Summary: patient accompanied by daughter, she states her mom has been coughing for the past 4 weeks and she is sore in her ribcage from doing so. Cough is dry, she has occasional chills but no measured fever. Patient is a smoker and has been using the nicoderm patch for the past 3 days. Denies contact with pertussis, she sees grandchildren and they have had URIs , they are UTD with vaccinations - History of Current Complaint Chief Complaint: UCRespiratory Stated Complaint: COUGH Hx Obtained From: Patient, Family/Ticket Sales Agent ?: No Onset/Duration: Gradual Onset, Lasting Weeks Timing: Constant Severity Initially: Mild Severity Currently: Severe Pain Intensity: 10 Character: Cough: Nonproductive Alleviating Factors: Bronchodilator, Upright Position Associated Signs And Symptoms: Positive: Chills, Wheezing - Risk Factors Pulmonary Embolism Risk Factors: Negative Cardiac Risk Factors: Smoking Pseudomonas Risk Factors: Negative Tuberculosis Risk Factors: Negative - Allergies/Home Medications Allergies/Adverse Reactions: Allergies Allergy/AdvReac Type Severity Reaction Status Date / Time bee venom protein (honey bee) Allergy anaph Verified 03/30/18 09:43 ketorolac [From Toradol] Allergy facial Verified 03/30/18 09:43 para;ysis morphine Allergy doesnt Verified 03/30/18 09:43 like side effects Home Medications: Home Medications guaiFENesin [Mucinex] 03/30/18 [History] PMH/Surg Hx/FS Hx/Imm Hx Respiratory History: COPD - Surgical History Surgical History: Yes Surgery Procedure, Year, and Place: HYSTERECTOMY, X3, LAPAROSCOPY, COLONOSCOPY - Family History Known Family History: Positive: Cardiac Disease, Hypertension, Diabetes, Renal Disease - Social History Alcohol Use: None Substance Use Type: None Smoking Status (MU): Heavy Every Day Tobacco Smoker Type: Cigarettes Amount Used/How Often: <1 PPD - Immunization History Most Recent Influenza Vaccination: 2016 Most Recent Pneumonia Vaccination: 2014 Review of Systems Constitutional: Negative Respiratory: Shortness Of Breath, Cough All Other Systems Reviewed And Are Negative: Yes Physical Exam Triage Information Reviewed: Yes Appearance: Ill-Appearing, Thin Vital Signs: Initial Vital Signs Temp 98.4 F 03/30/18 09:33 Pulse 87 03/30/18 09:33 Resp 32 03/30/18 09:33 BP 125/72 03/30/18 09:33 Pulse Ox 96 06/23/18 09:33 Vital Signs Reviewed: Yes Eyes: Positive: Conjunctiva Clear ENT: Positive: Normal ENT inspection, Hearing grossly normal, Pharynx normal, Uvula midline Neck: Positive: Supple, Nontender, No Lymphadenopathy Respiratory: Positive: Chest non-tender, Lungs clear, No respiratory distress, Rhonchi, Wheezing Cardiovascular: Positive: RRR, No Murmur, Pulses Normal, Brisk Capillary Refill Abdomen Description: Positive: Nontender, No Organomegaly, Soft Bowel Sounds: Positive: Present Musculoskeletal: Positive: Strength Intact, ROM Intact Diagnostic Evaluation - Laboratory O2 Sat by Pulse Oximetry: 96 Respiratory Course/Dx - Course Course Of Treatment: Patient was evaluated for COPD exacerbation/bronchitis and given prednisone and duoneb at after whch her lung exam was clear to auscultation, she experienced improvement of her symptoms. Chest xray showed hyperinflation without infiltrates. TO start augmentin as prescribed, Prednisone for 5 days, combivent MDI and f/u with PCP - Differential Dx/Diagnosis Provider Diagnoses: COPD exacerbation/bronchitis Discharge - Sign-Out/Discharge Documenting (check all that apply): Discharge/Admit/Transfer - Discharge Plan Condition: Good Disposition: HOME Referrals: Paula Aguilar MD [Primary Care Provider] - - Billing Disposition and Condition Condition: GOOD Disposition: Home
== END 2018-03-30 11:18 | disposition home or self-care (01) ==
LOC: UCEAST 09:24
DX: J44.1 Chronic obstructive pulmonary disease with (acute) exacerbation (principal); Z88.5 Allergy status to narcotic agent; Z91.030 Bee allergy status; Z82.49 Family history of ischemic heart disease and other diseases of the circulatory system; Z83.3 Family history of diabetes mellitus; Z84.1 Family history of disorders of kidney and ureter; F17.210 Nicotine dependence, cigarettes, uncomplicated
CPT/HCPCS: 71046; 99211; A9270-GY; G0463; J7512